=== PATIENT | female | born 1990 | race Caucasian/White ===

== ENCOUNTER 2016-08-05 23:00 | Emergency (ER) | payer BC ==
[~2016-08-05] VITALS: Ht 172.7 cm; Wt 70.3 kg
[2016-08-05] MEDS ORDERED: TdaP Vaccine 0.5ml Syr IM ONE (23:30)
--- NOTE | 2016-08-05 23:31 | Emergency Room Report ---
History of Present Illness General Chief Complaint: Laceration Source: Patient Present Illness HPI Is a 26-year-old female who is right-hand dominant. She presents with chief complaint of laceration to the forearm. She's been drinking sonia tonight. She was preparing a chicken. She was holding it in her left arm and was trying to cut it with a right hand. She slipped and cut her left arm with a knife. Denies suicidal thoughts or homicidal thought. She is here with her girlfriend. No other injury. No active bleeding. Allergies: Coded Allergies: PEANUT (Verified Allergy, Unknown, 08/05/16) SESAME SEED (Verified Allergy, Unknown, 08/05/16) Uncoded Allergies: PEANUTS (Allergy, Unknown, 08/05/16) Patient History Past Medical History: see triage record, old chart reviewed Past Surgical History: none Pertinent Family History: none Social History: Reports: alcohol use - Social Last Menstrual Period: TODAY Now: No Immunizations: other Reviewed Nursing Documentation: PMH: Agreed, PSxH: Agreed Review of Systems Eye: Denies: blurred vision, eye pain ENT: Denies: ear pain, nose congestion, throat swelling Respiratory: Denies: cough, shortness of breath Cardiovascular: Denies: chest pain, palpitations Gastrointestinal: Denies: abdominal pain, diarrhea, nausea, vomiting Musculoskeletal: Denies: back pain, joint pain Skin: Denies: rash Neurological: Denies: headache, numbness Endocrine: Denies: increased thirst, increased urine Hematologic/Lymphatic: Denies: easy bruising All Other Systems: negative except mentioned in HPI Physical Exam Vital Signs Date Time Temp Pulse Resp B/P Pulse Ox O2 Delivery O2 Flow Rate FiO2 08/05/16 23:07 97.9 114 18 110/72 97 Room Air vitals normal except for tachycardia Sp02 EP Interpretation: reviewed, normal General Appearance: well appearing, no apparent distress, alert Head: normocephalic, atraumatic Eyes: bilateral eye EOMI, bilateral eye PERRL ENT: hearing grossly normal, normal pharynx Neck: full range of motion, supple, no meningismus Respiratory: chest non-tender, lungs clear, normal breath sounds Cardiovascular #1: regular rate, rhythm, no murmur Gastrointestinal: normal bowel sounds, non tender, no mass, no organomegaly, no bruit, non-distended Musculoskeletal: back normal, gait/station normal, normal range of motion, other - Left forearm: There is a 10 cm gaping laceration to the volar aspect of the forearm. It went through the fat layer. Did not cut through the muscle or tendon. Full range of motion. Neurologic: alert, oriented x3 Psychiatric: mood/affect normal Skin: warm/dry Procedures Laceration/Wound Repair Laceration/Wound Repair : Consent: Verbal Wound Location: upper extremity Wound's Depth, Shape: linear, irregular, stellate Wound Length (cm): 10 Wound Explored: clean Irrigated w/ Saline (ccs): 1000 Anesthesia: Lidocaine w/ Epi Volume Anesthetic (ccs): 8 Wound Debrided: minimal Wound Repaired With: sutures Suture Size/Type: 3:0, proline Number of Sutures: 10 Patient Tolerated: Well Complications: None Medical Decision Making Diagnostic Impression: Primary Impression: Laceration of left forearm without complication Qualified Codes: S51.812A - Laceration without foreign body of left forearm, initial encounter ER Course Patient with left forearm laceration. She was intoxicated when she tried to cut a roasted chicken. She said she did because she did not have any clean cutting board. No tendon or muscle laceration. We'll discharge home. No evidence of suicidal attempt. This is confirmed by her friend. Last Vital Signs Date Time Temp Pulse Resp B/P Pulse Ox O2 Delivery O2 Flow Rate FiO2 08/05/16 23:07 97.9 114 18 110/72 97 Room Air Status: improved Disposition: HOME, SELF-CARE Condition: Stable Scripts Cephalexin* (KEFLEX*) 500 Mg Capsule 500 MG ORAL TID, #21 CAP 0 Refills Prov: RUSSELL OLIVEROS M.D. 08/06/16 Patient Instructions: Laceration Care, Adult Additional Instructions: Followup with Your Dr. in 7 days. Suture out in 7-10 days. Return if worse. Keep wound clean. RUSSELL OLIVEROS M.D. August 05, 2016 23:31
[2016-08-05 23:45] VITALS: BP 110/72
[2016-08-06] MEDS ORDERED: Bacitracin Oint 15gm Tube TOPIC ONE (00:19)
[2016-08-06] MEDS ORDERED: Bacitracin Oint UD TOPIC ONE (00:27)
[2016-08-06] MEDS ORDERED: KEFLEX500 MG ORAL (00:36)
[2016-08-06 00:40] VITALS: BP 110/72
== END 2016-08-06 00:40 | disposition home or self-care (01) ==
LOC: EMR 23:40
DX: S51.812A Laceration without foreign body of left forearm, initial encounter (principal); W26.0XXA Contact with knife, initial encounter; Y92.89 Other specified places as the place of occurrence of the external cause; Z23 Encounter for immunization; Z91.010 Allergy to peanuts; Z91.018 Allergy to other foods
CPT/HCPCS: 90471; 90715; 96372

== ENCOUNTER 2017-01-31 03:08 | Emergency (ER) | payer BC ==
[~2017-01-31] VITALS: Ht 172.7 cm; Wt 65.8 kg
[~2017-01-31 03:08] MED LIST: KEFLEX500 MG ORAL
[2017-01-31] MEDS ORDERED: ALLEGRA ALLERGY60 M1 PO (03:17)
[2017-01-31 03:20] VITALS: BP 135/88
--- NOTE | 2017-01-31 03:56 | Emergency Room Report ---
History of Present Illness General Chief Complaint: Laceration Source: Patient Present Illness HPI This is a 26-year-old female with no significant past medical history. She presents with a laceration from a puncture wound to her back. She came home from a [place] and was pouring drink. She slipped on the alcohol and fell backward. She hit the chart last and sustained a laceration to her back. No other injury. Did not pass out. Minimal pain. Allergies: Coded Allergies: PEANUT (Verified Allergy, Unknown, 08/05/16) SESAME SEED (Verified Allergy, Unknown, 08/05/16) Uncoded Allergies: PEANUTS (Allergy, Unknown, 08/05/16) Patient History Past Medical History: see triage record, old chart reviewed Past Surgical History: other Pertinent Family History: none Social History: Denies: smoking Last Menstrual Period: 01/26 Now: No : 0 Para: 0 Immunizations: other Reviewed Nursing Documentation: PMH: Agreed, PSxH: Agreed Nursing Documentation-PMH Past Medical History: No History, Except For Hx Asthma: Yes Review of Systems Eye: Denies: eye pain, blurred vision ENT: Denies: ear pain, nose congestion, throat swelling Respiratory: Denies: cough, shortness of breath Cardiovascular: Denies: chest pain, palpitations Gastrointestinal: Denies: abdominal pain, diarrhea, nausea, vomiting Musculoskeletal: Denies: back pain, joint pain Skin: Denies: rash Neurological: Denies: headache, numbness Endocrine: Denies: increased thirst, increased urine Hematologic/Lymphatic: Denies: easy bruising All Other Systems: negative except mentioned in HPI Physical Exam Vital Signs Date Time Temp Pulse Resp B/P (MAP) Pulse Ox O2 Delivery O2 Flow Rate FiO2 01/31/17 03:13 97.3 112 14 135/88 95 Room Air vitals normal Sp02 EP Interpretation: reviewed, normal General Appearance: well appearing, no apparent distress, alert Head: normocephalic, atraumatic Eyes: bilateral eye PERRL, bilateral eye EOMI ENT: hearing grossly normal, normal pharynx Neck: full range of motion, supple, no meningismus Respiratory: chest non-tender, lungs clear, normal breath sounds Cardiovascular #1: regular rate, rhythm, no murmur Gastrointestinal: normal bowel sounds, non tender, no mass, no organomegaly, no bruit, non-distended Musculoskeletal: back normal, gait/station normal, normal range of motion, other - There is a 4 mm laceration to the right lower back. No foreign body Psychiatric: mood/affect normal Skin: warm/dry Procedures Laceration/Wound Repair Laceration/Wound Repair : Consent: Verbal Wound Location: back Wound Length (cm): 1 Wound Explored: clean Irrigated w/ Saline (ccs): 500 Betadine Prep?: Yes Anesthesia: 1% Lidocaine Volume Anesthetic (ccs): 2 Wound Repaired With: sutures Suture Size/Type: 3:0, proline Number of Sutures: 2 Patient Tolerated: Well Complications: None Progress Area clean with chlorhexidine. Local anesthetic 1% lidocaine without epinephrine. After anesthesia, I explored the wound. It was not deep. No foreign body. Sutured with 2 interrupted 3-0 Prolene suture. Medical Decision Making Diagnostic Impression: Primary Impression: Laceration ER Course Patient presents with laceration from a puncture wound. No foreign body. Low risk for infection. We'll discharge home. Last Vital Signs Date Time Temp Pulse Resp B/P (MAP) Pulse Ox O2 Delivery O2 Flow Rate FiO2 01/31/17 03:20 97.3 14 135/88 95 Room Air 01/31/17 03:13 112 Status: improved Disposition: HOME, SELF-CARE Condition: Stable Referrals: NOT CHOSEN IPA/MD,REFERRING (PCP) Patient Instructions: Laceration Care, Adult Additional Instructions: Sutures out in 7 days. Return if symptom worsen. Keep clean. Followup with your DrYogesh in 7 days. RUSSELL OLIVEROS M.D. Jan 31, 2017 03:56
[2017-01-31 04:00] VITALS: BP 135/88
== END 2017-01-31 04:00 | disposition home or self-care (01) ==
LOC: EMR 03:47
DX: S31.010A Laceration without foreign body of lower back and pelvis without penetration into retroperitoneum, initial encounter (principal); W01.198A Fall on same level from slipping, tripping and stumbling with subsequent striking against other object, initial encounter; Y92.89 Other specified places as the place of occurrence of the external cause; J45.909 Unspecified asthma, uncomplicated
CPT/HCPCS: 99284